=== PATIENT | female | born 1985 | race Caucasian/White ===

== ENCOUNTER 2023-12-24 15:22 | Emergency (ER) | payer SELFPAY ==
--- NOTE | ~2023-12-24 | XR_ITS ---
EXAMINATION: XR foot LT min 3V DATE: 12/24/2023 15:50 INDICATION: Left foot pain. TECHNIQUE: 4 views of left foot were obtained. COMPARISON: None. FINDINGS: Bone alignment is normal. No fracture. There is mild osteoarthritis of first metatarsophala ngeal joint and some of the interphalangeal joints. There is an enthesophyte at plantar aspect of gabrielle caneal tuberosity. IMPRESSION: 1. Mild polyarticular osteoarthritis. Reviewed, dictated and finalized at location E.
[2023-12-24 15:37] VITALS: BP 144/60; PULSE 59; RESP 16; TEMP 36.5; O2SAT 99
--- NOTE | 2023-12-24 15:45 | ED_ITS ---
HPI - Extremity Injury (Lower) General Chief Complaint: Extremity Injury, Lower Stated Complaint: left foot/ankle injury Time Seen by Provider: 12/24/23 15:45 Source: patient Mode of arrival: ambulatory Limitations: no limitations History of Present Illness HPI Narrative: 38-year-old female presented for complaint of left foot/ankle pain after injury yesterday. She states she slipped on a gumball in the yard and rolled the ankle. States she has had no improvement in the swelling or pain, and is unable to bear weight. Denies deformity or bruising. She has taken ibuprofen yesterday and today, applied ice and elevated the foot. Using crutches from home. Related Data Allergies Allergy/AdvReac Type Severity Reaction Status Date / Time latex Allergy Mild rash Verified 12/24/23 15:34 Review of Systems Review of Systems: CONSTITUTIONAL: Denies body aches, fever, chills CARDIOVASCULAR: Denies chest pain, palpitations, or edema. RESPIRATORY: Denies cough or dyspnea. SKIN: Denies rash, itching, or wounds. MUSCULOSKELETAL: Reports left foot and ankle pain NEUROLOGIC: Denies headache, numbness, tingling, or weakness. All systems reviewed & are unremarkable except as noted in HPI and below PMFSH Comments At time of signature, I have reviewed and agree with nursing past medical, surgical, social and family history unless otherwise noted. Please see nursing chart for further information. There is no relevant family history pertinent to the presenting complaint Exam Narrative: GENERAL: Well-appearing CHEST: Speaks in full sentences. No respiratory distress. HEART: Regular rate and rhythm. Normal and equal peripheral pulses. EXTREMITIES: Left foot/ankle with mild dorsal swelling, tender with palpation. Foot has normal strength and sensation, slightly decreased range of motion with flexion/extension/rotation, endorses pain to dorsal foot with movement. No ecc hymosis, No open wounds, or obvious deformity; alignment normal, pulse palpable and equal bilaterally, skin warm, dry, pink. Capillary refill less than 3 seconds. SKIN: Warm, dry, no rash. NEURO: Alert and oriented x3. PSYCH: Normal mood and affect Extrem: Ankle/foot/toe images: 1. area of pain reported Course Course Emergency Course: Patient is aware of diagnosis, understands and agrees to treatment plan. Anticipatory guidance given. Patient agrees to follow-up as directed and is aware of reasons to seek care at the emergency department. Portions of this record may have been created with voice recognition software Level of Care: Express Care Visit Vital Signs Vital signs: Vital Signs Temperature 97.7 F 12/24/23 15:37 Pulse Rate 59 L 12/24/23 15:37 Respiratory Rate 16 12/24/23 15:37 Blood Pressure 144/60 H 12/24/23 15:37 Pulse Oximetry 99 12/24/23 15:37 Oxygen Delivery Room Air 12/24/23 15:37 Temperature 97.7 F 12/24/23 15:37 Pulse Rate 59 L 12/24/23 15:37 Respiratory Rate 16 12/24/23 15:37 Blood Pressure 144/60 H 12/24/23 15:37 Pulse Oximetry 99 12/24/23 15:37 Oxygen Delivery Room Air 12/24/23 15:37 Reviewed MDM - Extremity Injury (Lower) MDM Narrative Medical decision making narrative: results of x-ray reviewed with patient. lupe wrap applied. Patient will continue with crutches from home. Discussed physical exam findings. Advised supportive measures and signs/symptoms to go to the ER. Pt is appropriate for outpt treatment and f/u. Differential Diagnosis Differential diagnosis: Likely ankle sprain and strain, ankle fracture and other ( Foot fracture, foot strain, contusion) Imaging Data Radiologist's impression: Patient: Judit Moncada : 1985 MR#: [id number] Age: 38 Acct:[id number] Loc: [facility]? ? ADM Date: 12/24/23Attending Dr: Ordering Physician: Zoey Flores APRN Date of Service: 12/24/23 Procedure(s): XR foot LT min 3V Accession Number(s): [id number] cc: Zoey Flores APRN~ EXAMINATION: XR foot LT min 3V DATE: 12/24/2023 15:50 INDICATION: Left foot pain. TECHNIQUE: 4 views of left foot were obtained. COMPARISON: None. FINDINGS: Bone alignment is normal. No fracture. There is mild osteoarthritis of first metatarsophalangeal joint and some of the interphalangeal joints. There is an enthesophyte at plantar aspect of calcaneal tuberosity. IMPRESSION: 1. Mild polyarticular osteoarthritis. Discharge Plan Discharge Clinical Impression: Ankle sprain and strain Patient Disposition: Home, Self-Care Condition: Stable Instructions: Antibiotic Form, Ankle Sprain (ED) Additional Instructions: Rest - avoid excessive walking, running or jumping elevate the left leg; bear weight as tolerated Apply ice 15-20 minute intervals several times a day Keep it wrapped with LUPE or use a soft ankle splint Motrin 800mg every 8 hours, alternate with Tylenol 1000mg every 8 hours as needed Follow up with your primary care provider as needed in 1 week Go to the ER for worsening symptoms or concerns Prescriptions: New ibuprofen 800 mg tablet 800 mg PO TID PRN (Reason: pain) Qty: 20 0RF Follow-up/Referrals: PHYSICIAN NOT ON STAFF,NONSTAFF [Primary Care Provider] - Stand Alone Forms: Work/School Release IP Time of Disposition: 16:12
== END 2023-12-24 16:15 | disposition home or self-care (01) ==
PROVIDERS: Emergency Provider Nurse Practitioner Family
DX: S93.402A Sprain of unspecified ligament of left ankle, initial encounter (principal); S96.912A Strain of unspecified muscle and tendon at ankle and foot level, left foot, initial encounter; W22.8XXA Striking against or struck by other objects, initial encounter
CPT/HCPCS: 73630; 99213; G0463